=== PATIENT | male | born 1990 | race American Indian/Alaskan Native ===

== ENCOUNTER 2016-09-28 20:02 | Inpatient (IN) | payer OTHER ==
[2016-09-28 20:02] VITALS: BMI 24.3
[2016-09-28 20:09] VITALS: O2SAT 98
--- NOTE | 2016-09-28 20:15 | ED PDOC ---
Arrival/HPI - General Historian: Patient - History of Present Illness Time/Duration: 24 hours Symptom Course: Unchanged Activities at Onset: Other Context: Street <MikePriscilla amaral - Last Filed: 09/28/16 21:37> <Molina Mahmood - Last Filed: 09/28/16 21:39> - General Chief Complaint: Psychiatric Evaluation Time Seen by Provider: 09/28/16 20:06 - History of Present Illness Narrative History of Present Illness (Text): 09/28/16 20:12 26 year old male with past history of severe depression is transferred from [facility] for admission into inpatient behavioral unit. Patient states that he [place] to kill himself on train tracts. Patient is A&Ox 3 but does not recall how he got to [facility]. (Priscilla Méndez) Past Medical History - Provider Review Nursing Documentation Reviewed: Yes - Cardiac Hx Cardiac Disorders: No Hx Hypertension: No - Pulmonary Hx Tuberculosis: No - Neurological HX Cerebrovascular Accident: No Hx Seizures: No - Hematological/Oncological Hx Cancer: No - Genitourinary/Gynecological Hx Sexually Transmitted Diseases: No - Psychiatric Hx Psychophysiologic Disorder: Yes Hx Depression: Yes Hx Substance Use: Yes (marijuana) Other/Comment: insomnia <Priscilla Méndez - Last Filed: 09/28/16 21:37> - Provider Review Nursing Documentation Reviewed: Yes <Molina Mahmood - Last Filed: 09/28/16 21:39> Family/Social History - Physician Review Nursing Documentation Reviewed: Yes Family/Social History: Unknown Family HX Smoking Status: Never Smoked Hx Alcohol Use: Yes Hx Substance Use: Yes (marijuana) <Priscilla Méndez - Last Filed: 09/28/16 21:37> - Physician Review Nursing Documentation Reviewed: Yes Family/Social History: Unknown Family HX <Molina Mahmood - Last Filed: 09/28/16 21:39> Allergies/Home Meds <Priscilla Méndez - Last Filed: 09/28/16 21:37> <Molina Mahmood - Last Filed: 09/28/16 21:39> Allergies/Adverse Reactions: Allergies No Known Allergies Allergy (Verified 09/27/16 23:25) Home Medications: Home Meds Medication Instructions Recorded Confirmed No Known Home Med 09/28/16 09/28/16 Review of Systems - Review of Systems Constitutional: Normal Eyes: Normal ENT: Normal Respiratory: Normal. absent: SOB, Cough Cardiovascular: Normal. absent: Chest Pain Gastrointestinal: Normal. absent: Abdominal Pain, Constipation, Diarrhea, Nausea, Vomiting Skin: Normal Neurological: Normal. absent: Headache, Dizziness Psychiatric: Depression, Suicidal Ideation <Priscilla Méndez - Last Filed: 09/28/16 21:37> Physical Exam Temperature: Afebrile Blood Pressure: Normal Pulse: Regular Respiratory Rate: Normal Appearance: Positive for: Non-Toxic Mental Status: Positive for: Alert and Oriented X 3 - Systems Exam Head: Present: Atraumatic, Normocephalic Respiratory/Chest: Present: Clear to Auscultation, Good Air Exchange. No: Respiratory Distress, Accessory Muscle Use, Wheezes, Rales, Rhonchi Cardiovascular: Present: Regular Rate and Rhythm, Normal S1, S2. No: Murmurs Abdomen: Present: Normal Bowel Sounds. No: Tenderness, Distention, Peritoneal Signs, Rebound, Guarding Lower Extremity: Present: Normal Inspection. No: Edema Neurological: Present: GCS=15 Skin: Present: Warm, Dry, Normal Color. No: Rashes Psychiatric: Present: Alert, Oriented x 3. No: Normal Affect (flat affect) <Priscilla Méndez - Last Filed: 09/28/16 21:37> Medical Decision Making <Priscilla Méndez - Last Filed: 09/28/16 21:37> <Molina Mahmood - Last Filed: 09/28/16 21:39> ED Course and Treatment: 09/28/16 20:15 26 year old male with past medical history of depression Will consult psych for inpatient admission to psych. (Priscilla Méndez) Impression: Pt seen and evaluated with certified medical transcriptionist. Aware and agree with HPI, clinical findings, plan, and management. 26 year old male complaining of depression and suicidal ideation. Pt was medically cleared at previous institution and transferred for psychiatric admission. Pt accepted to Behavioral health for depression under Dr. Melendrez's service Plan: -- Admit to Behavioral health -- Reassess and disposition (Molina Mahmood) - Medication Orders Current Medication Orders: Acetaminophen (Tylenol 325mg Tab) 650 mg PO Q6 PRN PRN Reason: Pain, Mild (1-3) Aripiprazole (Abilify) 5 mg PO DAILY LETICIA Fluoxetine HCl (Prozac) 10 mg PO DAILY LETICIA Lorazepam (Ativan) 1 mg PO HS LETICIA PRN Reason: Protocol Zaleplon (Sonata) 10 mg PO HS PRN PRN Reason: Insomnia <Priscilla Méndez - Last Filed: 09/28/16 21:37> - Scribe Statement The provider has reviewed the documentation as recorded by the Scribe <Molina Mahmood - Last Filed: 09/28/16 21:39> - Scribe Statement Radha Jain All medical record entries made by the Scribe were at my direction and personally dictated by me. I have reviewed the chart and agree that the record accurately reflects my personal performance of the history, physical exam, medical decision making, and the department course for this patient. I have also personally directed, reviewed, and agree with the discharge instructions and disposition. (Molina Mahmood) Disposition/Present on Arrival - Present on Arrival Any Indicators Present on Arrival: No History of DVT/PE: No History of Uncontrolled Diabetes: No Urinary Catheter: No History of Decub. Ulcer: No History Surgical Site Infection Following: None - Disposition Have Diagnosis and Disposition been Completed?: Yes Disposition Time: 21:37 Patient Plan: Admission <Priscilla Méndez - Last Filed: 09/28/16 21:37> <Molina Mahmood - Last Filed: 09/28/16 21:39> - Disposition Diagnosis: Depression, Depression with suicidal ideation Disposition: HOSPITALIZED Patient Problems: Current Active Problems Problem Status Onset Acute delirium Acute Depression Acute Depression with suicidal ideation Acute Condition: STABLE
--- NOTE | 2016-09-29 02:04 | PCM.BM ---
<Caleb Mendoza - Last Filed: 09/29/16 01:59> Treatment Plan Problems - Problems identified on initial assessmt depression Date Initiated: 09/28/16 Time Initiated: 22:10 Assessment reference: NA Status: Active agitation Date Initiated: 09/28/16 Time Initiated: 21:45 Assessment reference: NA Status: Active Treatment assets and liabiliti Patient Assests: motivated, ADL independent Patient Liabilities: poor support system, substance abuse - Milieu Protocol Maintain good personal hygiene: daily Encourage regular showers, daily Remind patient to perform daily oral care, daily Assist patient to perform ADL's Conduct patient checks and document Observation sheet: Q15 minutes Maintain personal safety: daily Educate patient to report safety concerns to staff, daily Monitor environment for contraband/sharps Medication safety: Monitor for expected outcome, potential side effects: daily, Assess barriers to learning: daily, Assess readiness for medication education: daily Family Contact Family involvement: Family/SO is involved Family contact: Patient agrees to contact Family contact name: Farheen [phone] Discharge/Continuing Care - Education Needs Education Needs: Patient Medication, Patient Diagnosis/Disease Process, Patient Coping Skills, Patient Anger Management skills, Patient Activities of Daily Living, Patient Personal Hygiene/Grooming - Discharge Discharge Criteria: Free of Suicidal thoughts, Free of agitation <Fernando Mahmood - Last Filed: 09/30/16 10:30> Treatment Plan Problems - Problems identified on initial assessmt hopelessness Date Initiated: 09/30/16 Time Initiated: 10:33 Assessment reference: NA Status: Active Priority: 1 delusions Date Initiated: 09/30/16 Time Initiated: 10:33 Assessment reference: NA Status: Active Priority: 2 altered thought process Date Initiated: 09/30/16 Time Initiated: 10:34 Assessment reference: NA Status: Active Priority: 3 Discharge/Continuing Care - Discharge Discharge Criteria: Tolerates medication w/o severe side effects, Reduction of target symptoms <Soco Melendrez - Last Filed: 10/02/16 13:36> - Diagnosis (1) Psychosis Status: Acute Interventions: 10/02/16 13:35 Psychoeducation/psychotherapy Psychopharmacology/adjustment of medications as needed/ monitoring possible side effects Evaluate pt on daily basis Compliance with medications and follow up appointments Long acting medication if pt is noncompliant with pill form Suicide and homicide risk assessment and prevention, coping strategies, safety plan Relapse prevention Reduction of symptoms Improve functional status Possible assertive community treatment Cognitive behavioral therapy Family intervention Possible social skill training as outpatient (2) Cannabis abuse Status: Acute Interventions: 10/02/16 13:35 Pharmacotherapy for alcohol/benzos/opioid dependence Maintaining sobriety Relapse prevention Possible rehabilitation Motivational interviewing 12-step programs: AA meetings (3) Acute delirium Status: Acute Interventions: 10/02/16 13:36 Pt will be seen by medical team as needed Medications will be confirmed and resumed Additional consultation by specialists as needed Lab work as needed (CBC, CMP, TSH, free T4, UA, Urine test for females as needed) CXR as needed EKG Physical therapy valuation as needed
[2016-09-29 08:01] LABS: HDL CHOLESTEROL 37 mg/dL (29-60)
[2016-09-29 08:12] LABS: LDL CHOLESTEROL 79 mg/dL (0-129)
[2016-09-29 08:32] VITALS: RESP 20
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
--- NOTE | 2016-10-02 15:07 | PCM.PYCHPN ---
Psychiatric Progress Note - Psychiatric Progress Note Patient seen today, length of contact: 30min Patient Chief Complaint: "I am doing better" Problems Identified/Issues Discussed: Suicide/ homicide prevention, past psychiatric h/o, current psychiatric symptoms , medical problems, risk/benefits and alternatives of medications, medications compliance, coping strategies, substance abuse h/o, relapse prevention, importance of follow up with psychiatrist and therapist, discharge plan. Medical Problems: pt reported being healthy Diagnostic Results: Lab Results 09/29/16 07:48: Hemoglobin A1c 5.2 09/29/16 07:48: Triglycerides 99, Cholesterol 136, LDL Cholesterol Direct 79, HDL Cholesterol 37 DSM 5 Symptoms Update: Patient is a single homeless 26-year-old -Bruneian male, originally from [place] who [place] police [place] and brought into [facility] ED. He reported having suicidal thoughts to jump in front of train. He also indicated that that he was hearing voices and felt that people were after him. UDS was positive only for cannabis. pt was seen and examined today in his room. with some improvement with his thought process, but pt still presented to be disorganized, not aggressive, at times laughs inappropriately. overall pt is improving, pt was asking reasonable and intelligent questions. pt was educated about meds. as per RN report pt is doing better, started to go to the groups, no behavioral incidents. pt tolerates meds well, no side effects observed or reported AIMS0, no EPS. pt wants to go back to the [place], will ask SW to eval pt Impression: psychosis NOS r/o schizophrenia cannabis abuse cannabis induced psychosis Medication Change: Yes (risperdal started yesterday) Medical Record Reviewed: Yes Consults ordered or reviewed: medical evaluation in ED appreciated Mental Status Examination - Cognitive Function Orientation: Person Memory: Intact Attention: Poor (some improvement) Concentration: Poor (some improvement) Association: WNL Fund of Knowledge: WNL - Mood Mood: Depressed (less), Anxious (denied) - Affect Affect: Constricted (but more reactive mood congruent) - Speech Speech: Appropriate - Formal Thought Process Formal Thought Process: Delusions (ddenied), Paranoia (denied), Other (THOUGHT BLOCKING is better) - Suicidal Ideation Suicidal Ideation: No - Homicidal Ideation Homicidal Ideation: No Goal/Treatment Plan - Goal/Treatment Plan Need for Continued Stay: Remain at risks for inpatient hospitalization, Severe depression anxiety, Discharge may exacerbated symptoms, Severe functional impairment Progress Toward Problem(s) and Goals/Treatment Plan: Milieu, structure, supportive therapy Risperdal 1 mg twice a day Prozac 20 mg a day for depression and anxiety Ativan 1 mg at the nighttime and 0.5 mg twice a day for catatonia Trazodone 50 mg at the nighttime for depression and anxiety insomnia Sonata 10 mg at the nighttime for insomnia social worker masters evaluation will monitor closely collaterals from family, pt said he has "my baby's mother", gave permission to speak to her, will ask SW to contact her. Estimated Date of D/C: 10/04/16 (will monitor closely)
--- NOTE | 2016-10-03 17:15 | PCM.PYCHPN ---
Psychiatric Progress Note - Psychiatric Progress Note Patient seen today, length of contact: 30min Patient Chief Complaint: "I am doing much better" Problems Identified/Issues Discussed: Suicide/ homicide prevention, past psychiatric h/o, current psychiatric symptoms , medical problems, risk/benefits and alternatives of medications, medications compliance, coping strategies, substance abuse h/o, relapse prevention, importance of follow up with psychiatrist and therapist, discharge plan. Medical Problems: pt reported being healthy Diagnostic Results: Lab Results 09/29/16 07:48: Hemoglobin A1c 5.2 09/29/16 07:48: Triglycerides 99, Cholesterol 136, LDL Cholesterol Direct 79, HDL Cholesterol 37 DSM 5 Symptoms Update: Patient is a single homeless 26-year-old -Naur[place] male, originally from [place] who was [place] the police [place] tracks and brought into [facility] ED. He reported having suicidal thoughts to jump in front of train. He also indicated that that he was hearing voices and felt that people were after him. UDS was positive only for cannabis. pt was seen and examined today at TV room. with improvement with his thought process, much better to compare with admission. as per social media senior associate collateral information from patient's girlfriend, patient does not have history of mental illness, patient does not have history of psychotic breaks leg these before, patient came to [place] in order to have some job, patient is welcome back home in [place], patient will be provided with a ticket to the [employer] bus, patient's girlfriend is willing to pay for the ticket, please see social media senior associate notes for more detailed information. as per staff, patient is calm, corporative, socially appropriate, visible in the unit, socializing with others, has fair appetite and sleep, patient also participated in unit activities. pt tolerates meds well, no side effects observed or reported AIMS0, no EPS. in regards of the medications, this television writer we will start tapering down on antipsychotic medications as well as benzodiazepines. Most likely psychotic symptoms were related to substance abuse. Impression: psychosis NOS r/o schizophrenia cannabis abuse cannabis induced psychosis Medication Change: Yes (risperdal started yesterday) Medical Record Reviewed: Yes Consults ordered or reviewed: medical evaluation in ED appreciated Mental Status Examination - Cognitive Function Orientation: Person Memory: Intact Attention: Poor (improvement) Concentration: Poor (improvement) Association: WNL Fund of Knowledge: WNL - Mood Mood: Depressed (less), Anxious (denied) - Affect Affect: Constricted (but more reactive mood congruent) - Speech Speech: Appropriate - Formal Thought Process Formal Thought Process: Delusions (ddenied), Paranoia (denied), Other (THOUGHT BLOCKING is better) - Suicidal Ideation Suicidal Ideation: No - Homicidal Ideation Homicidal Ideation: No Goal/Treatment Plan - Goal/Treatment Plan Need for Continued Stay: Remain at risks for inpatient hospitalization, Severe depression anxiety, Discharge may exacerbated symptoms, Severe functional impairment Progress Toward Problem(s) and Goals/Treatment Plan: Milieu, structure, supportive therapy Risperdal will be decreased to 0.5 mg 3 times a day for psychosis Prozac 20 mg a day for depression and anxiety Ativan will be decreased 2.5 mg 3 times a day for catatonia symptoms ith a plan to wean that off Trazodone 50 mg at the nighttime for depression and anxiety insomnia Sonata 10 mg at the nighttime for insomnia social media senior associate evaluation will monitor closely collaterals from patient girlfriend appreciated Most likely discharge will be on Friday Estimated Date of D/C: 10/05/16 (will monitor closely)
--- NOTE | 2016-10-04 14:52 | PCM.PYCHPN ---
Psychiatric Progress Note - Psychiatric Progress Note Patient seen today, length of contact: 30min Patient Chief Complaint: "I am doing much better" Problems Identified/Issues Discussed: Suicide/ homicide prevention, past psychiatric h/o, current psychiatric symptoms , medical problems, risk/benefits and alternatives of medications, medications compliance, coping strategies, substance abuse h/o, relapse prevention, importance of follow up with psychiatrist and therapist, discharge plan. Medical Problems: pt reported being healthy Diagnostic Results: Lab Results 09/29/16 07:48: Hemoglobin A1c 5.2 09/29/16 07:48: Triglycerides 99, Cholesterol 136, LDL Cholesterol Direct 79, HDL Cholesterol 37 DSM 5 Symptoms Update: correction to initial note, pt is not homeless, lives in [place], in relationship with his girlfriend, who is expecting their first child, pt originally from [place] who was found by the police on railroad tracks and brought into [facility] ED. He reported having suicidal thoughts to jump in front of train. He also indicated that that he was hearing voices and felt that people were after him. UDS was positive only for cannabis. patient psychotic symptoms is improving significantly, patient thought process is very well organized right now, Risperdal is on tapering dose. Based on presentation most likely psychotic symptoms related to substance-induced psychosis, patient was not depressed that's why this writer technical publications will discontinue Prozac. Patient has support to girlfriend who is willing to purchase the bus ticket for patient to go back to [place]. pt needs to be d/c tomorrow afternoon in order to be able to take a bus back to [place], see SW note for more detailed info. all prescriptions filled, pt was advised to take meds as prescribed, stay away from drugs. Pt was appreciative. as per staff, patient is calm, corporative, socially appropriate, visible in the unit, socializing with others, has fair appetite and sleep, patient also participated in unit activities. pt tolerates meds well, no side effects observed or reported AIMS0, no EPS. Impression: psychosis NOS r/o schizophrenia cannabis abuse cannabis induced psychosis Medication Change: Yes (d/c prozac) Medical Record Reviewed: Yes Consults ordered or reviewed: medical evaluation in ED appreciated Mental Status Examination - Cognitive Function Orientation: Person Memory: Intact Attention: Poor (improvement) Concentration: Poor (improvement) Association: WNL Fund of Knowledge: WNL - Mood Mood: Depressed ("I am not depressed"), Anxious (denied) - Affect Affect: Broad (and mood congruent) - Speech Speech: Appropriate - Formal Thought Process Formal Thought Process: No Impairment - Suicidal Ideation Suicidal Ideation: No - Homicidal Ideation Homicidal Ideation: No Goal/Treatment Plan - Goal/Treatment Plan Need for Continued Stay: Remain at risks for inpatient hospitalization, Severe depression anxiety, Discharge may exacerbated symptoms, Severe functional impairment Progress Toward Problem(s) and Goals/Treatment Plan: Milieu, structure, supportive therapy Risperdal 0.5 mg 3 times a day for psychosis Prozac d/c, pt is not depressed Ativan was decreased to 0.5 mg 3 times a day for catatonia symptoms with plan to taper it off Trazodone 50 mg at the nighttime for depression and anxiety insomnia Sonata will be d/c today rn social services evaluation will monitor closely collaterals from patient girlfriend appreciated d/c scheduled for afternoon on Friday pt has all prescriptions filled in [facility] pharmacy Estimated Date of D/C: 10/05/16 (will monitor closely)
[2016-10-05 06:37] VITALS: BP 133/71; PULSE 52; TEMP 97.8
--- NOTE | 2016-10-05 08:44 | PCM.PYCHDC ---
Mental Status Examination - Mental Status Examination Orientation: Person, Place, Situation Memory: Intact Mood: Neutral Affect: Broad Speech: Appropriate Attention: WNL Concentration: WNL Association: WNL Fund of Knowledge: WNL Formal Thought Process: No Impairment Description of patient's judgement and insight: FAIR INSIGHT AND JUDGEMENT, IMPROVED SINCE ADMISSION Psychotic Thoughts and Behaviors: NO HALLUCINATIONS, NO PARANOIA, NO DELUSIONS ELICITED Suicidal Ideation: No Current Homicidal Ideation?: No Discharge Summary - Discharge Note Reason for Hospitalization: Pt originally from [place] who was [place] the police on railroad tracks and brought into [facility] ED. He reported having suicidal thoughts to jump in front of train. He also indicated that that he was hearing voices and felt that people were after him. UDS was positive only for cannabis. Laboratory Data: Laboratory Tests 09/29/16 09/29/16 07:48 07:48 Hemoglobin A1c 5.2 Triglycerides 99 Cholesterol 136 LDL Cholesterol Direct 79 HDL Cholesterol 37 Consultations:: List each consultation separately and include: 1. Reason for request. 2. Findings. 3. Follow-up Consultations: NONE Summary of Hospital Course include:: 1. Description of specific treatment plan utilized for patients during their course of treatmen. 2. Summarize the time- course for resolution of acute symptoms and/or regressed behaviors. 3. Describe issues identified and worked on during hospitalization. 4. Describe medication utilized. 5. Describe medical problems identified and treated. 6. Reassessment of suicide risk Summary of Hospital Course: PER DR. IYER, DAY PRIOR TO DISCHARGE pt is not homeless, lives in [place], in relationship with his girlfriend, who is expecting their first child, pt originally from [place] who was found by the police on railroad tracks and brought into [facility] ED. He reported having suicidal thoughts to jump in front of train. He also indicated that that he was hearing voices and felt that people were after him. UDS was positive only for cannabis. patient psychotic symptoms is improving significantly, patient thought process is very well organized right now, Risperdal is on tapering dose. Based on presentation most likely psychotic symptoms related to substance-induced psychosis, patient was not depressed that's why this senior medical writer will discontinue Prozac. Patient has support to girlfriend who is willing to purchase the bus ticket for patient to go back to [place]. pt needs to be d/c tomorrow afternoon in order to be able to take a bus back to [place], see note for more detailed info. all prescriptions filled, pt was advised to take meds as prescribed, stay away from drugs. Pt was appreciative. as per staff, patient is calm, corporative, socially appropriate, visible in the unit, socializing with others, has fair appetite and sleep, patient also participated in unit activities. pt tolerates meds well, no side effects observed or reported AIMS0, no EPS. PROGRESS NOTE ON DAY OF DISCHARGE I interviewed patient at bedside to assess continued stability for discharge. Patient is alert and well-oriented to month, year and circumstances. Eye contact is good. Patient feels improved and denies any suicidal thoughts or thoughts to harm others. Affect is calm and appropriately reactive. Patient denies hallucinations and is not responding to internal stimuli. Thought process is clear and coherent. Patient feels comfortable with discharge today and denies any new concerns. Denies acute discomfort or pain. Tolerating medications and denies any issues with them. Delusions and paranoia were not elicited on day of discharge. - Final Diagnosis (DSM 5) Condition upon Discharge: FAIR DSM 5: psychosis NOS r/o schizophrenia cannabis abuse cannabis induced psychosis Disposition: HOME/ ROUTINE Follow-up Treatment Plan: * PER NOTE: 10/04/16 15:34 - Social Work Progress Note by Lizeth Ojeda Acct Num: [id number] : 1990 Patient Age: 26 Patient to be d/c to [facility] via cab voucher,as pt reports not having any money. Pt provided with 30 day supply of medications. Pt instructed to follow up with outpatient psychiatrist upon arriving to [place], [place]. Pt capable of arranging follow up care. Pt's girlfriend, Farheen Ruiz aware of d/c instructions. [facility] [place] FLO[facility] LABS SUMMARIZED BELOW 09/27/16 09/28/16 09/28/16 23:36 00:21 00:21 WBC 8.8 Hgb 12.1 Hct 36.2 MCV 94.6 H MCH 31.6 H Plt Count 139 Neut % (Auto) 77.0 H Lymph % (Auto) 16.2 L Sodium 140 Potassium 3.1 L Chloride 100 Carbon Dioxide 26 Anion Gap 17 BUN 8 L Creatinine 0.8 Est GFR ( Amer) > 60 POC Glucose (mg/dL) 93 Random Glucose 100 Calcium 8.6 Total Bilirubin 0.8 AST 30 ALT 45 Alkaline Phosphatase 63 Total Protein 6.9 Albumin 4.0 Globulin 2.9 Albumin/Globulin Ratio 1.4 Triglycerides Cholesterol LDL Cholesterol Direct HDL Cholesterol Urine Color Urine Clarity Urine pH Ur Specific [place] Urine Protein Urine Glucose (UA) Urine Ketones Urine Blood Urine Nitrate Urine Bilirubin Ur Leukocyte Esterase Urine WBC (Auto) Urine RBC (Auto) Salicylates Acetaminophen U Cannabinoids Screen Alcohol, Quantitative < 10 09/28/16 09/28/16 09/28/16 00:21 06:49 06:49 WBC Hgb Hct MCV MCH Plt Count Neut % (Auto) Lymph % (Auto) Sodium Potassium Chloride Carbon Dioxide Anion Gap BUN Creatinine Est GFR ( Amer) POC Glucose (mg/dL) Random Glucose Calcium Total Bilirubin AST ALT Alkaline Phosphatase Total Protein Albumin Globulin Albumin/Globulin Ratio Triglycerides Cholesterol LDL Cholesterol Direct HDL Cholesterol Urine Color Yellow Urine Clarity Clear Urine pH 6.0 Ur Specific [place] 1.014 Urine Protein Negative Urine Glucose (UA) Normal Urine Ketones 1+ H Urine Blood Negative Urine Nitrate Negative Urine Bilirubin Negative Ur Leukocyte Esterase Neg Urine WBC (Auto) 4 Urine RBC (Auto) < 1 Salicylates < 1.0 Acetaminophen < 10.0 L U Cannabinoids Screen Positive Alcohol, Quantitative 09/29/16 07:48 WBC Hgb Hct MCV MCH Plt Count Neut % (Auto) Lymph % (Auto) Sodium Potassium Chloride Carbon Dioxide Anion Gap BUN Creatinine Est GFR ( Amer) POC Glucose (mg/dL) Random Glucose Calcium Total Bilirubin AST ALT Alkaline Phosphatase Total Protein Albumin Globulin Albumin/Globulin Ratio Triglycerides 99 Cholesterol 136 LDL Cholesterol Direct 79 HDL Cholesterol 37 Urine Color Urine Clarity Urine pH Ur Specific [place] Urine Protein Urine Glucose (UA) Urine Ketones Urine Blood Urine Nitrate Urine Bilirubin Ur Leukocyte Esterase Urine WBC (Auto) Urine RBC (Auto) Salicylates Acetaminophen U Cannabinoids Screen Alcohol, Quantitative Prescriptions/Medication Reconciliation: LORazepam [Ativan] 0.5 mg PO BID #60 tab risperiDONE [RisperDAL Tab] 0.5 mg PO TID #90 tab - Smoking Cessation Smoking Cessation Medication prescribed: No - Antipsychotic Medications Pt discharged on 2 or more routine antipsychotic medications: No
== END 2016-10-05 15:20 | disposition home or self-care (01) | DRG 430 ==
LOC: ED 20:02 → ERH 20:12 → PSYC 20:38
PROVIDERS: ADMIT Psychiatry & Neurology Psychiatry; ATTEND Psychiatry & Neurology Psychiatry
DX: F29 Unspecified psychosis not due to a substance or known physiological condition (principal); F11.20 Opioid dependence, uncomplicated; R45.851 Suicidal ideations; R40.2412 Glasgow coma scale score 13-15, at arrival to emergency department; F12.10 Cannabis abuse, uncomplicated; F19.959 Other psychoactive substance use, unspecified with psychoactive substance-induced psychotic disorder, unspecified; F22 Delusional disorders; F41.9 Anxiety disorder, unspecified; F51.05 Insomnia due to other mental disorder; Z59.0 Homelessness; R41.0 Disorientation, unspecified; F20.9 Schizophrenia, unspecified; F20.2 Catatonic schizophrenia; F32.89 Other specified depressive episodes